=== PATIENT | female | born 1955 | race Caucasian/White ===

== ENCOUNTER 2021-09-15 00:19 | Emergency (ER) | payer OTHER ==
[~2021-09-15] VITALS: Ht 160 cm; Wt 92.5 kg
[2021-09-15] MEDS ORDERED: LISINOPRIL20 MG PO (00:32)
[2021-09-15] MEDS ORDERED: ATORVASTATIN CA80 MG PO (00:32)
[2021-09-15] MEDS ORDERED: AMLODIPINE BESYL5 MG PO (00:33)
[2021-09-15] MEDS ORDERED: METOPROLOL SUCC50 MG PO (00:33)
[2021-09-15] MEDS ORDERED: SERTRALINE HCL100 MG PO (00:33)
--- NOTE | 2021-09-15 22:54 | EKG ---
[facility] [address] [facility] [place], [place] [address] Signed Normal sinus rhythm Possible Left atrial enlargement Septal infarct , age undetermined ST \T\ T wave abnormality, consider lateral ischemia Abnormal ECG No previous ECGs available Confirmed by MARTA APODACA MD ([id number]) on 09/15/2021 10:54:34 PM Electronically Signed By: MARTA APODACA MD 09/15/21 2254 PATIENT NAME: MORGAN COATS Electrocardiogram DATE OF : 57 PHYSICIAN: MARTA APODACA MD REPORT #: [id number] REPORT IS CONFIDENTIAL AND NOT TO BE RELEASED WITHOUT AUTHORIZATION
== END 2021-09-15 02:46 | disposition short-term general hospital (02) ==
LOC: ED 00:19
DX: I21.4 Non-ST elevation (NSTEMI) myocardial infarction (principal); I25.2 Old myocardial infarction; I10 Essential (primary) hypertension; E11.9 Type 2 diabetes mellitus without complications; K21.9 Gastro-esophageal reflux disease without esophagitis; Z79.899 Other long term (current) drug therapy; Z88.5 Allergy status to narcotic agent
CPT/HCPCS: 36415; 71045; 80053; 83735; 84484; 85025; 87502; 93005; 93010; 96374; 99285-25; J1644; U0003

== ENCOUNTER 2021-09-30 09:42 | Emergency (ER) | payer OTHER ==
[~2021-09-30] VITALS: Ht 160 cm; Wt 92.5 kg
--- NOTE | ~2021-09-30 | EKG ---
[facility] [address] [facility] [place], [place] [address] Draft EK completed, results pending confirmation PATIENT NAME: MORGAN COATS Electrocardiogram DATE OF : 57 PHYSICIAN: PRELIMINARY REPORT #: [id number] REPORT IS CONFIDENTIAL AND NOT TO BE RELEASED WITHOUT AUTHORIZATION
[~2021-09-30 09:42] MED LIST: AMLODIPINE BESYL5 MG PO; ATORVASTATIN CA80 MG PO; LISINOPRIL20 MG PO; METOPROLOL SUCC50 MG PO; SERTRALINE HCL100 MG PO
--- OUTSIDE RECORDS SUMMARY | 2021-09-30 09:48 | XMS ---
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 - Visits in 30 Days CARE PROVIDERS Na MitchellP-C Nurse Practitioner: Family Current PHONE: [phone] Carisa has no Care Guidelines for this patient. [place] VISIT COUNT (12 MO.) 2 [facility] TOTAL 2 NOTE: Visits indicate total known visits. ED/UCC VISIT TRACKING (12 MO.) 09/30/2021 09:42 [facility] [place] TYPE: Emergency COMPLAINT: - CHEST PAIN 09/15/2021 00:20 [facility] [place] TYPE: Emergency COMPLAINT: - CHEST PAIN DIAGNOSES: - Other alf (current) drug therapy - Gastro-esophageal reflux disease without esophagitis - Old myocardial infarction - Non-ST elevation (NSTEMI) myocardial infarction - Essential (primary) hypertension - Chest pain, unspecified - Contact with and (suspected) exposure to COVID-19 - Allergy status to narcotic agent - Type 2 diabetes mellitus without complications INPATIENT VISIT TRACKING (12 MO.) 09/15/2021 04:10 Melisa Michael MD TYPE: Medical Surgical COMPLAINT: - NSTEMI; HX DM, CAD, HTN, DEPRESSION/ANXIETY, GERD DIAGNOSES: 0. Chest pain, unspecified 1. Non-ST elevation (NSTEMI) myocardial infarction 2. Atherosclerotic heart disease of [place] coronary artery without angina pectoris 3. Type 2 diabetes mellitus with hyperglycemia 4. Essential (primary) hypertension 5. Hyperlipidemia, unspecified 6. Depression, unspecified 7. Anxiety disorder, unspecified 8. Gastro-esophageal reflux disease without esophagitis 9. Unspecified osteoarthritis, unspecified site 10. Abnormal levels of other serum enzymes 11. Underdosing of aspirin, initial encounter 12. Underdosing of antithrombotic drugs, initial encounter 13. Patient's intentional underdosing of medication regimen for other reason 14. Obesity, unspecified 15. Body mass index [BMI] 34.0-34.9, adult 16. Presence of aortocoronary bypass graft 17. Presence of coronary angioplasty implant and graft 18. Other alf (current) drug therapy 19. USP (current) use of aspirin 20. Old myocardial infarction 21. Acquired absence of both cervix and uterus 22. Personal history of nicotine dependence 23. Family history of ischemic heart disease and other diseases of the circulatory system 24. Family history of malignant neoplasm of trachea, bronchus and lung [email or web address]
== END 2021-09-30 13:28 | disposition home or self-care (01) ==
LOC: ED 09:42
DX: I25.10 Atherosclerotic heart disease of native coronary artery without angina pectoris (principal); I25.2 Old myocardial infarction; M19.90 Unspecified osteoarthritis, unspecified site; I10 Essential (primary) hypertension; E11.9 Type 2 diabetes mellitus without complications; K21.9 Gastro-esophageal reflux disease without esophagitis; Z88.5 Allergy status to narcotic agent; Z79.899 Other long term (current) drug therapy
CPT/HCPCS: 36415; 80048; 84484; 85025; 93005; 93010; 99285-25

== ENCOUNTER 2022-08-02 09:28 | Emergency (ER) | payer MEDICARE ==
--- NOTE | 2022-08-02 14:05 | EKG ---
[facility] [address] [facility] [place] [address] Signed Normal sinus rhythm Left ventricular hypertrophy with repolarization abnormality ( R in aVL ) Anteroseptal infarct (cited on or before 15-SEP-2021) Abnormal ECG When compared with ECG of 30-SEP-2021 09:39, No significant change was found Confirmed by MAGI DUKES MD ([id number]) on 08/02/2022 2:05:14 PM Electronically Signed By: MAGI DUKES MD 08/02/22 1405 PATIENT NAME: MORGAN COATS Electrocardiogram DATE OF : 57 PHYSICIAN: MAGI DUKES MD REPORT #: [id number] REPORT IS CONFIDENTIAL AND NOT TO BE RELEASED WITHOUT AUTHORIZATION
[2022-08-02] MEDS ORDERED: ONDANSETRON ODT8 MG PO (15:17)
[2022-08-02] MEDS ORDERED: MECLIZINE HCL25 MG PO (15:17)
[2022-08-02] MEDS ORDERED: CEPHALEXIN500 M1 PO (15:46)
== END 2022-08-02 16:20 | disposition home or self-care (01) ==
LOC: ED 09:28
DX: H81.399 Other peripheral vertigo, unspecified ear (principal); N39.0 Urinary tract infection, site not specified; I25.2 Old myocardial infarction; M19.90 Unspecified osteoarthritis, unspecified site; I10 Essential (primary) hypertension; E11.9 Type 2 diabetes mellitus without complications; K21.9 Gastro-esophageal reflux disease without esophagitis; Z88.5 Allergy status to narcotic agent; Z79.899 Other long term (current) drug therapy; Z20.822 Contact with and (suspected) exposure to COVID-19
CPT/HCPCS: 36415; 70450; 70551; 80053; 81001; 84484; 85025; 87502; 93005; 93010; 93880; 96374; 99284-25; A9270; C9803; J2060; U0003

== ENCOUNTER 2024-02-19 11:40 | Emergency (ER) | payer MEDICARE, BC ==
[~2024-02-19] VITALS: Ht 160 cm; Wt 84.2 kg
[~2024-02-19 11:40] MED LIST changes: +CEPHALEXIN500 M1 PO; +MECLIZINE HCL25 MG PO; +METFORMIN HCL500 MG PO; +METHOTREXATE2.5 MG PO; +ONDANSETRON ODT8 MG PO
--- OUTSIDE RECORDS SUMMARY | 2024-02-19 11:47 | XMS ---
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 Carisa has no Care Guidelines for this patient. [place] VISIT COUNT (12 MO.) [address] [facility] TOTAL 2 NOTE: Visits indicate total known visits. ED/C VISIT TRACKING (12 MO.) 02/19/2024 11:41 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 Non-ST elevation (NSTEMI) myocardial infarction 37704. NSTEMI 82934. Non-ST elevation (NSTEMI) myocardial infarction [email or web address]
[2024-02-19] MEDS ORDERED: HYDROMORPHONE HC2 MG PO (11:54)
[2024-02-19] MEDS ORDERED: CLOPIDOGREL75 MG PO (11:54)
[2024-02-19] MEDS ORDERED: STOOL SOFTENER240 MG PO (11:55)
[2024-02-19] MEDS ORDERED: ELIQUIS5 M1 PO (12:42)
[2024-02-19 12:46] VITALS: BP 144/61
== END 2024-02-19 12:46 | disposition home or self-care (01) ==
LOC: ED 11:40
DX: I82.402 Acute embolism and thrombosis of unspecified deep veins of left lower extremity (principal); I25.2 Old myocardial infarction; I10 Essential (primary) hypertension; E11.9 Type 2 diabetes mellitus without complications; Z95.1 Presence of aortocoronary bypass graft; Z88.5 Allergy status to narcotic agent; Z88.8 Allergy status to other drugs, medicaments and biological substances; Z79.899 Other long term (current) drug therapy; Z79.84 Long term (current) use of oral hypoglycemic drugs
CPT/HCPCS: 99282